=== PATIENT | female | born 1985 | race Caucasian/White ===

== ENCOUNTER 2017-02-05 02:31 | Outpatient (CLI) | payer OTHER, MEDICAID ==
[~2017-02-05] VITALS: Ht 175.3 cm; Wt 120.5 kg
[2017-02-05 02:45] VITALS: BP 123/77
== END 2017-02-05 03:55 | disposition home or self-care (01) ==
LOC: LDOP 02:31
PROVIDERS: ATTEND Obstetrics & Gynecology
DX: O26.893 Other specified pregnancy related conditions, third trimester (principal); O62.9 Abnormality of forces of labor, unspecified; R10.9 Unspecified abdominal pain; Z3A.39 39 weeks gestation of pregnancy
CPT/HCPCS: 59025; 99211; G0463

== ENCOUNTER 2017-02-07 11:33 | Inpatient (IN) | payer OTHER, MEDICAID ==
[~2017-02-07] VITALS: Ht 175.3 cm; Wt 75.0 kg
[2017-02-09] MEDS ORDERED: OXYTOCIN 30U/ 0.9% NaCL 500ML 500 ML IV PRN (10:49)
[2017-02-09] MEDS ORDERED: LACTATED RINGERS 1,000 ML IV SCH (10:49)
[2017-02-09] MEDS ORDERED: OXYTOCIN 30U/ 0.9% NaCL 500ML 500 ML IV ONE (10:49)
[2017-02-09] MEDS ORDERED: D5%-LACTATED RINGERS 1,000 ML IV SCH (10:49)
[2017-02-09] MEDS ORDERED: FENTANYL PF 100 MCG/2ML IVPush PRN (11:00)
[2017-02-09 11:27] VITALS: BP 119/75
[2017-02-09] MEDS ORDERED: OXYTOCIN 30U/ 0.9% NaCL 500ML 500 ML ONE ×2 (11:45→17:36)
[2017-02-09] MEDS ORDERED: CALCIUM CARBONATE 500 MG TAB.CHEW PO PRN (12:30)
[2017-02-09] MEDS ORDERED: ACETAMINOPHEN 325 MG TABLET PO PRN ×2 (12:30)
[2017-02-09] MEDS ORDERED: DIPH,PERTUSS(ACELL),TET VAC/PF NC IM-VACC PRN (12:30)
[2017-02-09] MEDS ORDERED: ONDANSETRON 2MG/ML, 2ML IV PRN (12:30)
[2017-02-09] MEDS ORDERED: MAGNESIUM HYDROXIDE 8%, 30ML UDC PO PRN (12:30)
[2017-02-09] MEDS ORDERED: MEASLES,MUMPS&RUBELLA VACC/PF 0.5 ML SQ-VACC PRN (12:30)
[2017-02-09] MEDS ORDERED: OXYcodone/APAP 5/325MG TABLET PO PRN ×2 (12:30)
[2017-02-09] MEDS ORDERED: RHOGAM FROM BLOOD BANK 1 NOTE EA IM/IV ONE (12:30)
[2017-02-09] MEDS ORDERED: MISOPROSTOL 200 MCG TABLET PR PRN (12:30)
[2017-02-09] MEDS ORDERED: BUPIVACAINE/PF 0.25% ONE (14:22)
[2017-02-09] MEDS ORDERED: FENTANYL/BUPIV./NS/PF 250 ML EPIDCONT ONE (14:22)
[2017-02-09] MEDS: LACTATED RINGERS 1,000 ML IV SCH (14:25)
[2017-02-09] MEDS ORDERED: FENTANYL/BUPIV./NS/PF 250 ML EPIDCONT SCH (14:25)
[2017-02-09] MEDS ORDERED: LACTATED RINGERS 1,000 ML IVBOLUS PRN (14:30)
[2017-02-09] MEDS ORDERED: EPHEDRINE 50 MG/ML, 1ML IVPush PRN (14:30)
[2017-02-09] MEDS ORDERED: NALOXONE 0.4 MG/ML, 1ML IVPush PRN (14:30)
[2017-02-09] MEDS ORDERED: NEWBORN KIT ONE (15:20)
[2017-02-09] MEDS ORDERED: IBUPROFEN 600 MG TABLET ONE (17:36)
[2017-02-09] MEDS: IBUPROFEN 600 MG TABLET PO PRN (17:54)
[2017-02-09] MEDS: OXYTOCIN 30U/ 0.9% NaCL 500ML 500 ML IV SCH ×2 (17:54→22:18)
[2017-02-09 19:30] VITALS: BP 129/84
[2017-02-10] MEDS: LACTATED RINGERS 1,000 ML IV SCH ×2 (00:02→06:25)
[2017-02-10] MEDS: DOCUSATE 100 MG CAPSULE PO PRN ×2 (00:08→10:46)
[2017-02-10] MEDS: IBUPROFEN 600 MG TABLET PO PRN (00:08)
[2017-02-10 00:30] VITALS: BP 126/70
[2017-02-10 04:25] VITALS: BP 122/78
[2017-02-10 08:00] VITALS: BP 130/88
[2017-02-10] MEDS: OXYTOCIN 30U/ 0.9% NaCL 500ML 500 ML IV SCH (08:18)
[2017-02-10] MEDS ORDERED: PRENATAL VIT/IRON/FA 1 EACH TABLET PO SCH (09:00)
[2017-02-10 12:30] VITALS: BP 137/85
[2017-02-10] MEDS ORDERED: IBUP-1222 PO (15:03)
== END 2017-02-10 16:40 | disposition home or self-care (01) | DRG 775 ==
LOC: LDIP 02-09 10:29 → 2NW 02-09 19:18
PROVIDERS: ADMIT Obstetrics & Gynecology; ATTEND Obstetrics & Gynecology
PROC: 10E0XZZ Delivery of Products of Conception, External Approach (ICD-10-PCS; principal; 2017-02-09)
PROC: 00HU33Z Insertion of Infusion Device into Spinal Canal, Percutaneous Approach (ICD-10-PCS; 2017-02-09)
PROC: 3E0R3CZ (ICD-10-PCS; 2017-02-09)
DX: O69.81X0 Labor and delivery complicated by cord around neck, without compression, not applicable or unspecified (principal); Z37.0 Single live birth; Z3A.40 40 weeks gestation of pregnancy
CPT/HCPCS: 36415; 85025; 86850; 86900; J2590; J3010; J7120

== ENCOUNTER → 2017-04-19 | Outpatient (CLI) | payer OTHER, MEDICAID ==
[~2017-04-19] MED LIST: IBUP-1222 PO; PREN1TAB60 PO
== END | disposition home or self-care (01) ==
LOC: STAR 09:54
PROVIDERS: ATTEND Obstetrics & Gynecology
DX: Z02.9 Encounter for administrative examinations, unspecified (principal)

== ENCOUNTER 2017-04-26 10:23 | Day surgery (SDC) | payer OTHER, MEDICAID ==
[~2017-04-26] VITALS: Ht 175.3 cm; Wt 109.8 kg
[2017-04-26] MEDS ORDERED: FENTANYL PF 100 MCG/2ML ONE ×2 (10:57→13:17)
[2017-04-26] MEDS ORDERED: MIDAZOLAM 1 MG/ML, 2ML ONE (10:57)
[2017-04-26 10:58] VITALS: BP 122/87
[2017-04-26] MEDS ORDERED: LIDOCAINE 1%, 2ML SQ PRN (11:00)
[2017-04-26] MEDS ORDERED: LACTATED RINGERS 1,000 ML IV SCH (11:00)
[2017-04-26] MEDS ORDERED: LIDOCAINE 1%, 2ML ONE (11:04)
[2017-04-26] MEDS ORDERED: SILVER NITRATE STICK TP ONE (11:22)
[2017-04-26] MEDS ORDERED: BUPIVACAINE/PF-EPI 0.25% 1:200K ONE (11:22)
[2017-04-26 12:05] LABS: HCG UR OBC PASS
[2017-04-26] MEDS ORDERED: ONDANSETRON 2MG/ML, 2ML IVPush PRN (13:00)
[2017-04-26] MEDS ORDERED: hydrALAzine 20 MG/ML, 1ML IV PRN (13:00)
[2017-04-26] MEDS ORDERED: METOCLOPRAMIDE 5 MG/ML, 2ML IV PRN (13:00)
[2017-04-26] MEDS ORDERED: HYDROmorphone 1 MG/ML, 1ML IV PRN (13:00)
[2017-04-26] MEDS ORDERED: LABETALOL 5MG/ML, 20ML IV PRN (13:00)
[2017-04-26] MEDS ORDERED: OXYcodone 5 MG/5 ML ORAL.SOL UDC PO PRN (13:00)
[2017-04-26] MEDS ORDERED: ACETAMINOPHEN 325 MG TABLET PO PRN (13:00)
[2017-04-26] MEDS ORDERED: OXYcodone 5 MG/5 ML ORAL.SOL UDC ONE (13:17)
[2017-04-26] MEDS ORDERED: ACETAMINOPHEN 650 MG/20.3 ML UDC ONE (13:17)
[2017-04-26] MEDS: FENTANYL PF 100 MCG/2ML IV PRN ×4 (13:20→14:05)
[2017-04-26] MEDS ORDERED: SUCCINYLCHOLINE 20 MG/ML, 10ML ONE (16:19)
[2017-04-26] MEDS ORDERED: ONDANSETRON 2MG/ML, 2ML ONE (16:19)
[2017-04-26] MEDS ORDERED: ROCURONIUM 10 MG/ML ONE (16:19)
[2017-04-26] MEDS ORDERED: KETOROLAC 30 MG/1 ML ONE (16:19)
[2017-04-26] MEDS ORDERED: PROPOFOL 10 MG/ML, 20ML ONE (16:19)
== END 2017-04-26 15:48 ==
LOC: OUT 10:23
PROVIDERS: ATTEND Obstetrics & Gynecology
DX: Z30.2 Encounter for sterilization (principal)
CPT/HCPCS: 58661; 81025; 88302; J0330; J1885; J2250; J2405; J2704; J3010; J3490; J7120